=== PATIENT | male | born 1930 | race Caucasian/White ===

== ENCOUNTER 2020-09-15 09:17 | Emergency (ER) | payer BC, MEDICARE ==
[~2020-09-15] VITALS: Ht 182.9 cm; Wt 82.0 kg
[2020-09-15] MEDS ORDERED: ASPI-963 PO (09:27)
[2020-09-15] MEDS ORDERED: ATOR40TA PO (09:27)
[2020-09-15] MEDS ORDERED: CARV6.2512 PO (09:28)
[2020-09-15] MEDS ORDERED: DIGO125T85 PO (09:29)
[2020-09-15] MEDS ORDERED: FURO-93 PO (09:29)
[2020-09-15] MEDS ORDERED: LIDOCAINE 1%-EPI 1:100K, 20ML SQ ONE (09:30)
[2020-09-15] MEDS ORDERED: RIVA15TA PO (09:30)
[2020-09-15] MEDS ORDERED: TAMS-11 PO (09:30)
[2020-09-15] MEDS ORDERED: OXYMETAZOLINE NASAL SPRAY 0.05%, 15ML NAS ONE (09:30)
[2020-09-15] MEDS ORDERED: OXYMETAZOLINE NASAL SPRAY 0.05%,30ML ONE (09:33)
[2020-09-15] MEDS ORDERED: LIDOCAINE-MPF 1%, 2ML ONE (09:33)
--- NOTE | 2020-09-15 09:39 | NUR ---
yoni. report received from [facility]. pt c/o nose bleed started today. pt was transffered from [facility] because they don't have ent. pt went to [facility] 2 days ago for the same and they fixed it, but started again today. no trauma/glf/dzy. taking xarelto for a-fib. pt's aox4. resps even and unlabored. bp/spo2 monitors in place. call light within reach. pa at bedside for assessment at this time.
--- NOTE | 2020-09-15 09:40 | NUR ---
med ordered from pharmacy at this time.
[2020-09-15 09:50] LABS: BASOPHILS % (AUTO) 1 % (0-1); EOSINOPHILS % (AUTO) 1 % (1-7); LYMPHOCYTES % (AUTO) 9 % (22-44); MEAN CORPUSCULAR HEMOGLOBIN 30.7 pg (27.5-34.5); MEAN CORPUSCULAR HGB CONC 32.8 g/dL (33.2-36.2); MEAN PLATELET VOLUME 8.3 fL (7.4-10.4); MONOCYTES % (AUTO) 4 % (2-9); NEUTROPHILS % (AUTO) 86 % (42-75); PLATELET COUNT 203 x10^3/uL (130-400); RED BLOOD COUNT 4.25 x10^6/uL (4.38-5.82); RED CELL DISTRIBUTION WIDTH 15.4 % (9.4-14.8)
[2020-09-15 09:51] LABS: MD NO
--- NOTE | 2020-09-15 09:53 | NUR ---
pa at bedside for procedure at this time.
[2020-09-15 09:59] LABS: ALANINE AMINOTRANSFERASE 19 U/L (12-78); ALBUMIN 3.2 g/dL (3.4-5.0); ANION GAP 4 mmol/L (5-15); CALCIUM 8.4 mg/dL (8.5-10.1); CHLORIDE 111 mmol/L (98-107); CREATININE 1.08 mg/dL (0.7-1.3)
[2020-09-15 10:01] LABS: ALKALINE PHOSPHATASE 67 U/L (45-117); BILIRUBIN,TOTAL 1.2 mg/dL (0.2-1.0); TOTAL PROTEIN 6.7 g/dL (6.4-8.2)
[2020-09-15 10:43] VITALS: BP 138/76
--- NOTE | 2020-09-15 10:43 | NUR ---
PA AT BEDSIDE. PT RESTING ON CHAIR. PT'S AOX4. RESPS EVEN AND UNLABORED.
--- NOTE | 2020-09-15 11:30 | NUR ---
water given per request. edmd/pa ok'd to give some water.
--- NOTE | 2020-09-15 11:49 | NUR ---
Patient given discharge instructions and they have confirmed that they understand the instructions. Patient ambulatory with steady gait with this rn.
== END 2020-09-15 11:50 | disposition home or self-care (01) ==
LOC: ED 10:22
DX: R04.0 Epistaxis (principal); J44.9 Chronic obstructive pulmonary disease, unspecified; I48.91 Unspecified atrial fibrillation; I10 Essential (primary) hypertension; Z87.891 Personal history of nicotine dependence; Z79.899 Other long term (current) drug therapy; Z86.718 Personal history of other venous thrombosis and embolism
CPT/HCPCS: 30901; 36415; 80053; 85025; 99284